=== PATIENT | female | born 1960 | race Caucasian/White ===

== ENCOUNTER 2017-12-12 05:44 | Day surgery (SDC) | END 2017-12-12 13:35 | disposition home or self-care (01) ==

== ENCOUNTER 2018-09-04 07:19 | Day surgery (SDC) | payer BC ==
[~2018-09-04] VITALS: Ht 147.3 cm; Wt 62.5 kg
[~2018-09-04 07:19] MED LIST: AMLODIPINE; ASA; ASPI-481 PO; IRON45TA2 PO; LEVO25TA50 PO; METO-448 PO; MULT-761 PO; OMEG-135 PO; OMEPRAZOLE; PRAVASTATIN
[2018-09-04 07:55] VITALS: Ht 147.3 cm; Wt 62.5 kg
[2018-09-04 08:30] VITALS: BP 147/72; PULSE 75; RESP 17
[2018-09-04] MEDS ORDERED: VITAMIN D (08:35)
[2018-09-04 10:06] VITALS: BP 108/65; RESP 15
[2018-09-04] MEDS ORDERED: MIDAZOLAM 1 MG/ML 2 ML INJ ONE ×3 (11:20→14:01)
[2018-09-04] MEDS ORDERED: FENTAnyl 50 MCG/ML VIAL ONE (11:21)
== END 2018-09-04 13:23 | disposition home or self-care (01) ==
LOC: GIL 07:19
PROVIDERS: ATTEND Internal Medicine Gastroenterology
DX: K92.1 Melena (principal); K64.8 Other hemorrhoids; I10 Essential (primary) hypertension
CPT/HCPCS: 45378; J2250; J3010; Z7610